=== PATIENT | male | born 1960 | race Caucasian/White ===

== ENCOUNTER 2017-07-08 07:15 | Inpatient (IN) | payer SELFPAY ==
[2017-07-08] MEDS ORDERED: ASPIRIN 81 MG TABLET, CHEWABLE PO ONE (07:57)
[2017-07-08 08:17] LABS: ABSOLUTE BASOPHILS # (AUTO) 0.1 10^3/uL (0.0-0.2); ABSOLUTE EOSINOPHILS # (AUTO) 0.3 10^3/uL (0.0-0.6); ABSOLUTE LYMPHOCYTES (AUTO) 2.1 10^3/uL (0.5-4.7); ABSOLUTE MONOCYTES (AUTO) 0.6 10^3/uL (0.1-1.4); ABSOLUTE NEUT (AUTO) 6.3 10^3/uL (1.7-8.2); BASOPHILS % (AUTO) 1.1 % (0-2); EOSINOPHILS % (AUTO) 2.9 % (0-6); HEMOGLOBIN 16.6 g/dL (13.5-17.0); HGB HCT DIFFERENCE 1.8; LYMPHOCYTES % (AUTO) 22.6 % (13-45); MEAN CORPUSCULAR HEMOGLOBIN 31.9 pg (27.0-33.4); MEAN CORPUSCULAR HGB CONC 34.6 g/dL (32.0-36.0); MEAN CORPUSCULAR VOLUME 92 fl (80-97); MONOCYTES % (AUTO) 6.2 % (3-13); RED CELL DISTRIBUTION WIDTH 13.9 % (11.5-14.0); SEGMENTED NEUTROPHILS % (AUTO) 67.2 % (42-78); WHITE BLOOD COUNT 9.4 10^3/uL (4.0-10.5)
[2017-07-08 08:35] LABS: ANION GAP 11 (5-19)
[2017-07-08 08:47] LABS: CREATINE KINASE MB 4.27 ng/mL (<4.55)
[2017-07-08 08:52] LABS: ALANINE AMINOTRANSFERASE 42 U/L (21-72); ALKALINE PHOSPHATASE 119 U/L (38-126); ASPARTATE AMINO TRANSFERASE 34 U/L (17-59); BILIRUBIN,DIRECT 0.4 mg/dL (0.0-0.4); BILIRUBIN,TOTAL 0.8 mg/dL (0.2-1.3); BLOOD UREA NITROGEN 15 mg/dL (7-20); CALCIUM 9.3 mg/dL (8.4-10.2); CARBON DIOXIDE 25 mmol/L (22-30); CHLORIDE 101 mmol/L (98-107); CREATINE KINASE 319 U/L (55-170); CREATININE RESULT 0.92 mg/dL (0.52-1.25); GLUCOSE 310 mg/dL (75-110); POTASSIUM 4.2 mmol/L (3.6-5.0); SODIUM 137.2 mmol/L (137-145); TOTAL PROTEIN 6.9 g/dL (6.3-8.2)
[2017-07-08 09:07] LABS: TROPONIN I 0.076 ng/mL
[2017-07-08] MEDS ORDERED: IPRATROPIUM/ALBUTEROL 0.5-2.5 MG/3 ML AMPUL NEB ONE (09:27)
--- NOTE | 2017-07-08 09:28 | ER Document Report ---
ED Respiratory Problem - General Information source: Patient TRAVEL OUTSIDE OF THE [place] IN LAST 30 DAYS: No <CLINTON MACHUCA - Last Filed: 07/08/17 13:14> <MARINA LEBRON - Last Filed: 07/08/17 17:10> - General Chief Complaint: Shortness Of Breath Stated Complaint: SHORTNESS OF BREATH Time Seen by Provider: 07/08/17 07:57 Notes: Patient is a 56 year old male who presents to the ED with complaints of intermittent dyspnea and chest pressure. Patient also states he feels like his stomach is bloating adding to the pressure in his chest. He has been having a productive cough with wheezing that he states is worse when he is laying down. He denies a fever. He does not have a hx of asthma. He states he has also had lower extremity edema that is worse than his baseline. (CLINTON MACHUCA) - Related Data Home Medications: Current Home Medications No Home Medications 07/08/17 [History] Past Medical History - General Information source: Patient - Social History Smoking Status: Current Every Day Smoker Frequency of alcohol use: Rare Drug Abuse: None Patient has suicidal ideation: No Patient has homicidal ideation: No - Past Medical History Cardiac Medical History: Reports: Hx Hypertension Endocrine Medical History: Reports: Hx Diabetes Mellitus Type 2 Renal/ Medical History: Denies: Hx Peritoneal Dialysis Surgical Hx: Negative <CLINTON MACHUCA - Last Filed: 07/08/17 13:14> - Social History Family History: Reviewed & Not Pertinent <MARINA LEBRON - Last Filed: 07/08/17 17:10> Review of Systems - Review of Systems Constitutional: No symptoms reported EENT: No symptoms reported Cardiovascular: See HPI, Chest pain - pressure Respiratory: See HPI, Cough, Short of breath, Sputum, Wheezing Gastrointestinal: See HPI, Other - bloating Genitourinary: No symptoms reported Male Genitourinary: No symptoms reported Musculoskeletal: See HPI, Leg swelling Skin: No symptoms reported Hematologic/Lymphatic: No symptoms reported Neurological/Psychological: No symptoms reported <CLINTON MACHUCA - Last Filed: 07/08/17 13:14> Physical Exam - General General appearance: Appears well, Alert In distress: None - HEENT Head: Normocephalic, Atraumatic Eyes: Normal Extraocular movements intact: Yes Pupils: PERRL - Respiratory Respiratory status: Tachypnea Breath sounds: Wheezing - fine expiratory with forced expiration, Other - crackles in bases - Cardiovascular Rhythm: Regular Heart sounds: Normal auscultation Murmur: No - Abdominal Inspection: Normal - Back Back: Normal - Extremities General upper extremity: Normal inspection, Normal ROM General lower extremity: Normal ROM. No: Edema - Neurological Neuro grossly intact: Yes - Psychological Associated symptoms: Normal affect, Normal mood - Skin Skin Temperature: Warm Skin Moisture: Dry Skin Color: Normal <CLINTON MACHUCA - Last Filed: 07/08/17 13:14> - Vital signs Vitals: Temp Pulse Resp BP Pulse Ox 97.7 F 106 H 22 H 134/88 H 95 07/08/17 07:25 07/08/17 07:25 07/08/17 07:25 07/08/17 07:25 07/08/17 07:25 Course - Laboratory Result Diagrams: 07/08/17 08:03 07/08/17 08:03 - Consults Dr. Allen Time consulted: 10:51 <CLINTON MACHUCA - Last Filed: 07/08/17 13:14> - Laboratory Result Diagrams: 07/08/17 08:03 07/08/17 08:03 - Diagnostic Test Radiology reviewed: Image reviewed, Reports reviewed <MARINA LEBRON - Last Filed: 07/08/17 17:10> - Re-evaluation Re-evalutation: 07/08/17 1126 Discussed in person with Dr. Allen in strong recommendation to admit the patient for further evaluation of heart failure. 07/08/17 13:14 Discussed with patient the results of echocardiogram. Further discussed the need for the patient to be admitted for further evaluation for the heart failure. The patient will be given Ativan and a nicotine patch to help relieve his anxiety and need to go smoke and will reassess. (CLINTON MACHUCA) 07/08/17 Patient is a 56-year-old male who comes in complaining of difficulty breathing particularly with exertion and trying to lay flat. Patient symptoms are consistent with congestive heart failure. Patient has crackles at bases, pulmonary congestion on chest x-ray. Patient was seen by Dr. Allen and CTA, as well as stat echocardiogram were obtained. Both are consistent with heart failure and fluid overload. Patient initially was resistant to staying in the hospital but is now agreeable to do that. Patient states that he is feeling very anxious. He will be given some Ativan and also a nicotine patch. Patient does not have any chest pain. Patient has been referred to the hospitalist service for admission. (MARINA LEBRON) - Vital Signs Vital signs: Temp Pulse Resp BP Pulse Ox 98.4 F 106 H 22 H 140/88 H 95 07/08/17 16:55 07/08/17 16:55 07/08/17 16:55 07/08/17 16:55 07/08/17 16:55 - Laboratory Laboratory results interpreted by me: 07/08/17 08:03 Glucose 310 H Creatine Kinase 319 H - Consults Dr. Allen Reason for consultation: 07/08/17 10:51 Discussed patient. He will review patients records and call back. 07/08/17 11:05 He will come see the patient. (CLINTON MACHUCA) Critical Care Note - Critical Care Note Total time excluding time spent on procedures (mins): 45 - Evaluation and management of difficulty breathing, management of fluid overload, diagnosis of new onset heart failure, consultation with specialist, coordination of admission <MARINA LEBRON - Last Filed: 07/08/17 17:10> Discharge <CLINTON MACHUCA - Last Filed: 07/08/17 13:14> - Discharge Admitting Provider: Hospitalist - [facility] Admitted: Telemetry <MARINA LEBRON - Last Filed: 07/08/17 17:10> - Discharge Clinical Impression: New onset of congestive heart failure Condition: Stable Disposition: ADMITTED INPATIENT Scribe Attestation: 07/08/17 17:09 I personally performed the services described in the documentation, reviewed and edited the documentation which was dictated to the scribe in my presence, and it accurately records my words and actions. (MARINA LEBRON) Scribe Documentation - Scribe Written by Scribe:: mariaelena Fernandes, 07/08/2017, 1014 acting as scribe for :: Fannie <CLINTON MACHUCA - Last Filed: 07/08/17 13:14>
--- NOTE | 2017-07-08 10:39 | RADIOLOGY REPORT (SQ) ---
EXAM DESCRIPTION: CHEST PA/LAT COMPLETED DATE/TIME: 07/08/2017 10:21 am REASON FOR STUDY: SOB COMPARISON: None. EXAM PARAMETERS: NUMBER OF VIEWS: two views TECHNIQUE: Digital Frontal and Lateral radiographic views of the chest acquired. RADIATION DOSE: NA LIMITATIONS: none FINDINGS: LUNGS AND PLEURA: Chronic interstitial changes. Pulmonary vascular congestion. Mild pulm onary edema. No localized infiltrate. MEDIASTINUM AND HILAR STRUCTURES: No masses or contour abnormalities. HEART AND VASCULAR STRUCTURES: Heart size is normal. BONES: No acute findings. HARDWARE: None in the chest. OTHER: No other significant finding. IMPRESSION: Chronic lung changes. Pulmonary vascular congestion mild pulmonary edema but normal hea rt size. TECHNICAL DOCUMENTATION: JOB ID: [id number] [employer]- All Rights Reserved
[2017-07-08] MEDS ORDERED: FUROSEMIDE INJ/PF 40 MG/4 ML SDV IV ONE ×2 (10:54→18:00)
--- NOTE | 2017-07-08 12:19 | RADIOLOGY REPORT (SQ) ---
EXAM DESCRIPTION: CTA CHEST COMPLETED DATE/TIME: 07/08/2017 11:52 am REASON FOR STUDY: evaluate for PE COMPARISON: None. TECHNIQUE: CT scan of the chest performed using helical scanning technique with dynamic intravenous contrast injection. Images reviewed with lung, soft tissue and bone windows. Reconstructed coronal and sagittal MPR images reviewed. Additional 3 dimensional post-processing performed to develop Maximal Intensity Projection images (DC P). All images stored on PACS. All CT scanners at this facility use dose modulation, iterative reconstruction, and/or weight based d osing when appropriate to reduce radiation dose to as low as reasonably achievable (ALARA). [facility]: Dose Right [facility]: CareDose [facility]: Dose Right [facility]: Teradose 4D [facility]: [employer] CONTRAST TYPE AND DOSE: contrast/concentration: Isovue 370.00 mg/ml; Total Contrast Delivered: 83.0 ml; Total Saline Delivered: 80.0 ml Contrast bolus optimized for the pulmonary arteries. Not diagnostic for the aorta. RENAL FUNCTION: Creatinine 0.9 BUN 15 RADIATION DOSE: Up-to-date CT equipment and radiation dose reduction techniques were employed. CTDIv ol: 16.5 - 35.1 mGy. DLP: 1346 mGy-cm. . LIMITATIONS: None. FINDINGS: LUNGS AND PLEURA: Moderate right pleural effusion, smaller left pleural effusion. AORTA AND GREAT VESSELS: No aneurysm. Contrast bolus not optimized for the aorta. HEART: No pericardial effusion. Mild coronary atherosclerosis. PULMONARY ARTERIES: No emboli visualized in the main pulmonary arteries or the segmental branches. HILAR AND MEDIASTINAL STRUCTURES: No identified masses or abnormal nodes. HARDWARE: None in the chest. UPPER ABDOMEN: No significant findings. Limited exam. THYROID AND OTHER SOFT TISSUES: No masses. No adenopathy. BONES: No acute or significant finding. 3D MIPS: Confirm above findings. OTHER: No other significant finding. IMPRESSION: 1. There is no evidence of pulmonary emboli. 2. Moderate right pleural effusion, smaller left pleural effusion. COMMENT: Quality ID # [id number]: Final reports with documentation of one or more dose reduction techniques (e.g., Automated exposure control, adjustment of the mA and/or kV according to patient size, use of iterative reconstruction technique) TECHNICAL DOCUMENTATION: JOB ID: [id number] - [employer]- All Rights Reserved
--- NOTE | 2017-07-08 12:33 | PDOC CONSULTATION ---
Consultation Consult Date: 07/08/17 Attending physician:: MARINA LEBRON Consult reason:: Dyspnea, abnormal EKG History of Present Illness Patient complains of: Shortness of breath History of Present Illness: Patient is a 56 year old male who presents to the ED with complaints of intermittent dyspnea and chest pressure. Patient also states he feels like his stomach is bloating adding to the pressure in his chest. He has been having a productive cough with wheezing that he states is worse when he is laying down. He denies a fever. He does not have a hx of asthma. He states he has also had lower extremity edema that is worse than his baseline. Patient describes history of hypertension. He has borderline diabetes. Patient denied any prior history of myocardial infarction, angina or congestive heart failure. Patient works as a flatbed truck driver. Patient denied any prior history of blood clots in the legs are in the lungs. Patient denied any significant radiation to the discomfort. There is no significant associated symptoms except for shortness of breath. There is no associated nausea vomiting or diaphoresis. Symptoms has been going on just a few days with gradual worsening. Patient came to the ER because of worsening dyspnea, leg swelling and marked exercise intolerance. Past Medical History Cardiac Medical History: Reports: Hypertension Endocrine Medical History: Reports: Diabetes Mellitus Type 2 Past Surgical History Past Surgical History: Reports: None Social History Information Source: Patient Smoking Status: Current Every Day Smoker - Advance Directive Resuscitation Status: Full Code Surrogate healthcare decision maker:: Patient's is the surrogate decision-maker Family History Family History: Hypertension Parental Family History Reviewed: Yes Children Family History Reviewed: Yes Sibling(s) Family History Reviewed.: Yes Medication/Allergy Home Medications: Aspirin [Aspirin 81 mg Chewable Tablet] 81 mg PO DAILY tab.chew 07/10/17 Atorvastatin Calcium [Lipitor 40 mg Tablet] 40 mg PO QHS #30 tablet 07/10/17 Clopidogrel Bisulfate [Plavix 75 mg Tablet] 75 mg PO DAILY #30 tablet 07/10/17 Furosemide [Lasix 80 mg Tablet] 80 mg PO DAILY #30 tablet 07/10/17 Lisinopril 2.5 mg PO DAILY #30 tablet 07/10/17 Metformin HCl [Glucophage 500 mg Tablet] 1,000 mg PO BIDACBS #60 tablet Metoprolol Succinate [Toprol Xl 25 mg Tab.sr] 25 mg PO DAILY #30 tab.sr.24h Allergies/Adverse Reactions: No Known Allergies Allergy (Unverified 07/08/17 17:22) Review of Systems Review of Systems: Please see history of present illness and past medical history as wall. Constitutional: No fever or chills reported. Head : No recent chronic headaches, recent head injury. Eyes: No recent eye pain, diplopia, redness, discharge, acute visual changes. Ears: No recent chronic ear pain, acute hearing loss, ear discharge. Oral cavity: No recent ulcerations, bleeding, oral cavity discomfort. Neck: No recent acute neck pain reported. Hematologic: No recent easy bruising or bleeding or hematologic malignancy reported. Lymphatic: No recent lymphatic malignancy, chronic lymphadenopathy reported yet Cardiovascular system review: See history of present illness. Respiratory system review: No recent chronic cough, hemoptysis, blood clots in the lungs reported. Mild Shortness of breath on exertion Gastrointestinal system review: Negative for any recent acute or chronic abdominal pain, hematemesis, melena, recent change in bowel habits. Genitourinary system review: No recent acute or chronic hematuria, flank pain, UTI etc. reported. Patient noted some testicular swelling. Skin system review: Negative for any recent abnormal bruising, no rash, no pruritus reported. Neurologic: No prior history of strokes, mini strokes, seizure disorder. Psychologic: No history of major psychosis or major depression reported. Musculoskeletal: Minor aches and pains reported. No acute joint swelling reported. Endocrine: No recent polyuria, polydipsia, recent heat or cold intolerance. Physical Exam Vital Signs: Temp Pulse Resp BP Pulse Ox 97.7 F 106 H 26 H 134/88 H 95 07/08/17 07:25 07/08/17 07:25 07/08/17 09:02 07/08/17 07:25 07/08/17 07:25 Intake & Output 07/07/17 07/08/17 07/09/17 06:59 06:59 06:59 Weight 120.4 kg Results Laboratory Results: 07/08/17 08:03 07/08/17 08:03 07/08/17 07/08/17 08:03 08:03 WBC 9.4 RBC 5.20 Hgb 16.6 Hct 48.0 MCV 92 MCH 31.9 MCHC 34.6 RDW 13.9 Plt Count 203 Seg Neutrophils % 67.2 Lymphocytes % 22.6 Monocytes % 6.2 Eosinophils % 2.9 Basophils % 1.1 Absolute Neutrophils 6.3 Absolute Lymphocytes 2.1 Absolute Monocytes 0.6 Absolute Eosinophils 0.3 Absolute Basophils 0.1 Sodium 137.2 Potassium 4.2 Chloride 101 Carbon Dioxide 25 Anion Gap 11 BUN 15 Creatinine 0.92 Est GFR ( Amer) > 60 Est GFR (Non-Af Amer) > 60 Glucose 310 H Calcium 9.3 Total Bilirubin 0.8 AST 34 ALT 42 Alkaline Phosphatase 119 Total Protein 6.9 Albumin 4.0 07/08/17 07/08/17 07/08/17 08:03 08:03 08:03 Creatine Kinase 319 H CK-MB (CK-2) 4.27 Troponin I 0.076 NT-Pro-B Natriuret Pep 232 Impressions: Chest X-Ray 07/08/17 07:57 IMPRESSION: Chronic lung changes. Pulmonary vascular congestion mild pulmonary edema but normal heart size. Chest/Abdomen CTA 07/08/17 11:23 IMPRESSION: 1. There is no evidence of pulmonary emboli. 2. Moderate right pleural effusion, smaller left pleural effusion. Assessment & Plan - Diagnosis (1) Dyspnea Qualifiers: Dyspnea type: dyspnea on exertion Qualified Code(s): R06.09 - Other forms of dyspnea Is this a current diagnosis for this admission?: Yes (2) Hypertension Qualifiers: Hypertension type: essential hypertension Qualified Code(s): I10 - Essential (primary) hypertension Is this a current diagnosis for this admission?: Yes (3) Abnormal electrocardiogram Is this a current diagnosis for this admission?: Yes (4) Congestive heart failure Qualifiers: Congestive heart failure type: unspecified congestive heart failure type Congestive heart failure chronicity: acute on chronic Qualified Code(s): I50.9 - Heart failure, unspecified Is this a current diagnosis for this admission?: Yes (5) Coronary artery disease Qualifiers: Coronary Disease-Associated Artery/Lesion type: circle artery Associated angina: angina presence unspecified Is this a current diagnosis for this admission?: Yes (6) Elevated troponin I level Is this a current diagnosis for this admission?: Yes - Notes Notes: Dyspnea: Chest x-ray suggests CHF. Patient has troponin I elevation. Have ordered a stat echocardiogram, results are pending. Agree with IV Lasix. Hypertension: Recommend good control of blood pressure. Blood pressure goal is 135/85 or less. Abnormal electrocardiogram: EKG suggested LVH, cannot rule out anterior myocardial infarction possibly old. Agree with troponin I cycling. Congestive heart failure: This is strongly suspected based on review of chest x- ray, CT scan even though BNP level is WNL. A 2D echo has been ordered. Coronary artery disease: Patient has coronary calcification on CTA therefore has coronary artery disease. Preliminary 2D echo shows depressed LVEF. Have strongly recommended that patient be admitted. However he is wanting to go home. Discussed with ER physician, feel that patient should really be admitted otherwise, patient may need to sign his own discharge. - Time Time Spent: 50 to 70 Minutes - CODE STATUS was discussed, patient remains full code. Surrogate decision-maker unchanged. Multiple medical problems were addressed. More than 50% of the time spent coordinating care, discussing management plans with involved caregivers. Management plans discussed with involved personnels. Medical decision making was of moderate to high complexity , patient's has multiple comorbidities. Medications reviewed and adjusted accordingly: Yes
--- NOTE | 2017-07-08 12:40 | EKG REPORT ---
SEVERITY:- ABNORMAL ECG - SINUS TACHYCARDIA PROBABLE LEFT ATRIAL ABNORMALITY LOW VOLTAGE IN FRONTAL LEADS BORDERLINE T ABNORMALITIES, INFERIOR LEADS : Confirmed by: Wilfredo Parekh MD 08-Jul-2017 12:39:26
--- NOTE | 2017-07-08 13:01 | XCELERA REPORT ---
[address] [address] Transthoracic Echocardiogram Report Name: LORENZA DE ANDA Age: 56 yrs Gender: Male : 1960 Patient Status: Emergency Patient Location: ER Study Date: 07/08/2017 11:40 AM Height: 71 in Weight: 265 lb BSA: 2.4 m2 Procedure: A complete two-dimensional transthoracic echocardiogram was performed (2D, M-mode, spectral and color flow Doppler). The study was technically difficult with many images being suboptimal in quality. Reason For Study: CHF, dyspnea Ordering Physician: MARINA LEBRON Performed By: Aneta Howard Interpretation Summary Left ventricular systolic function is mildly reduced. The Ejection Fraction estimate is 40-45% Doppler measurements suggest pseudonormalized left ventricular relaxation, which is associated with grade II/IV or mild to moderate diastolic dysfunction There is mild concentric left ventricular hypertrophy. The left ventricle is borderline dilated. Not all wall segments were well visualized. Regional wall motion abnormalities cannot be excluded due to limited visualization. There is a mild amount of mitral regurgitation. The inferior vena cava appeared normal and decreased < 50% with respiration (RAP 10-15 mmHg) There is no pericardial effusion. MMode/2D Measurements & Calculations RVDd: 3.5 cm LVIDd: 5.7 cm FS: 19.3 % Ao root diam: 2.6 cm IVSd: 1.1 cm LVIDs: 4.6 cm EDV(Teich): 157.2 ml LVPWd: 1.1 cm ESV(Teich): 95.5 ml Ao root area: 5.5 cm2 EF(Teich): 39.2 % LA dimension: 4.2 cm Doppler Measurements & Calculations MV E max sabrina: MV P1/2t max sabrina: Ao V2 max: LV V1 max P.4 cm/sec 120.9 cm/sec 135.7 cm/sec 2.2 mmHg MV A max sabrina: MV P1/2t: 31.8 msec Ao max PG: LV V1 max: 57.8 cm/sec 7.4 mmHg 73.5 cm/sec MV E/A: 2.1 MVA(P1/2t): 6.9 cm2 MV dec slope: 1112 cm/sec2 PA V2 max: 94.3 cm/sec PA max P.6 mmHg Left Ventricle The left ventricle is borderline dilated. There is mild concentric left ventricular hypertrophy. Left ventricular systolic function is mildly reduced. The Ejection Fraction estimate is 40-45%. Doppler measurements suggest pseudonormalized left ventricular relaxation, which is associated with grade II/IV or mild to moderate diastolic dysfunction. Not all wall segments were well visualized. Regional wall motion abnormalities cannot be excluded due to limited visualization. Right Ventricle The right ventricle is grossly normal size. The right ventricular systolic function is normal. Atria Borderline right atrial enlargement. The left atrium is mildly dilated. Interarterial septum not well visualized and not well dopplered. Cannot comment on ASD/PFO presence. Mitral Valve The mitral valve leaflets are sclerotic, but show no functional abnormalities. There is no mitral valve stenosis. There is a mild amount of mitral regurgitation. Aortic Valve The aortic valve is grossly normal. There is no aortic valve stenosis. No aortic regurgitation is present. Tricuspid Valve The tricuspid valve is not well visualized, but is grossly normal. There is no tricuspid stenosis. There is a trace or physiologic amount of tricuspid regurgitation. Tricuspid regurgitation jet envelope not well defined to measure RV systolic pressure accurately. Pulmonic Valve The pulmonic valve is not well visualized. Great Vessels The aortic root is not well visualized but is probably normal size. The inferior vena cava appeared normal and decreased < 50% with respiration (RAP 10-15 mmHg). Effusions There is no pericardial effusion. : MARINA LEBRON > Pernell Allen
[2017-07-08] MEDS ORDERED: NICOTINE 21 MG/24 HR PATCH.TD24 TD ONE (13:18)
[2017-07-08] MEDS ORDERED: LORAZEPAM INJ 2 MG/1 ML VIAL IV ONE (13:18)
[2017-07-08] MEDS ORDERED: ALBUTEROL SULFATE 0.083% NEB 2.5 MG/3 ML AMPUL NEB PRN (15:44)
[2017-07-08] MEDS ORDERED: ONDANSETRON HCL INJ/PF 4 MG/2 ML SDV IV PRN (15:50)
[2017-07-08] MEDS ORDERED: DEXTROSE 40% GEL 15 GM TUBE PO PRN ×2 (15:55)
[2017-07-08] MEDS ORDERED: GLUCAGON,HUMAN RECOMB 1 MG INJ IM PRN (15:55)
[2017-07-08] MEDS ORDERED: DEXTROSE 50%-WATER 25 GM/50 ML DISP.SYRIN IV PRN ×2 (15:55)
--- NOTE | 2017-07-08 16:28 | PDOC H&P ---
History of Present Illness Admission Date/PCP: 07/08/17 14:15 Patient complains of: Shortness of breath History of Present Illness: Patient is a 56 year old male who presents to the ED with complaints of intermittent dyspnea and chest pressure. Patient also states he feels like his stomach is bloating adding to the pressure in his chest. He has been having a productive cough with wheezing that he states is worse when he is laying down. He denies a fever. He does not have a hx of asthma. He states he has also had lower extremity edema that is worse than his baseline. Patient describes history of hypertension. He has borderline diabetes. He however has malaise for several weeks. He had paroxysmal nocturnal dyspnea that started last week. He developed worsening symptoms for the past 2 days. No purulent expectoration however was reported. Patient went to the emergency room, CT scan of the chest showed no pulmonary embolism however there is moderate pleural effusion on the right. Noted small effusion on the left as well. No definite infiltrate nor consolidation otherwise were noted. Patient was evaluated by cardiology and an impression of heart failure was made. Patient was then referred to the hospitalist for admission. In the emergency room he was given Ativan and currently the patient was sedated. Information obtained from the family was at bedside and from urgency room records. Past Medical History Cardiac Medical History: Reports: Hypertension Endocrine Medical History: Reports: Diabetes Mellitus Type 2 Renal/ Medical History: Reports: Other - Cystocele Past Surgical History Past Surgical History: Reports: None Social History Information Source: Relative Smoking Status: Current Every Day Smoker Frequency of Alcohol Use: None Hx Recreational Drug Use: Yes Drugs: Cocaine - Advance Directive Resuscitation Status: Full Code Family History Family History: CAD, DM, Hypertension Parental Family History Reviewed: Yes Children Family History Reviewed: Yes Sibling(s) Family History Reviewed.: Yes Medication/Allergy Home Medications: No Home Medications 07/08/17 Review of Systems ROS unobtainable: Due to mental status Physical Exam Vital Signs: Temp Pulse Resp BP Pulse Ox 97.9 F 99 24 H 139/92 H 96 07/08/17 15:17 07/08/17 15:17 07/08/17 15:17 07/08/17 15:17 07/08/17 15:17 General appearance: PRESENT: no acute distress, obese Head exam: PRESENT: atraumatic, normocephalic Eye exam: PRESENT: conjunctiva pink, EOMI, PERRLA. ABSENT: scleral icterus Ear exam: PRESENT: normal external ear exam. ABSENT: drainage Mouth exam: PRESENT: moist, neck supple Neck exam: ABSENT: carotid bruit, JVD, lymphadenopathy, thyromegaly Respiratory exam: PRESENT: clear to auscultation sabine - Anteriorly, decreased breath sounds - Posteriorly on the lower lung field. ABSENT: rales, rhonchi, wheezes Cardiovascular exam: PRESENT: RRR, +S1, +S2. ABSENT: diastolic murmur, gallop, rubs, systolic murmur Pulses: PRESENT: normal dorsalis pedis pul Vascular exam: PRESENT: normal capillary refill GI/Abdominal exam: PRESENT: normal bowel sounds, soft. ABSENT: distended - Obese, guarding, mass - Exam is limited due to increased abdominal girth, organolmegaly - Exam is limited due to increased abdominal girth, rebound, tenderness Rectal exam: PRESENT: deferred Extremities exam: PRESENT: full ROM, other - Trace to +1 lower extremity edema. ABSENT: calf tenderness, clubbing Neurological exam: PRESENT: altered - Patient is sedated Skin exam: PRESENT: dry, intact, warm. ABSENT: cyanosis Results Laboratory Results: 07/08/17 14:18 Troponin I 0.104 Impressions: Chest X-Ray 07/08/17 07:57 IMPRESSION: Chronic lung changes. Pulmonary vascular congestion mild pulmonary edema but normal heart size. Chest/Abdomen CTA 07/08/17 11:23 IMPRESSION: 1. There is no evidence of pulmonary emboli. 2. Moderate right pleural effusion, smaller left pleural effusion. Assessment & Plan - Diagnosis (1) Congestive heart failure Qualifiers: Congestive heart failure type: unspecified congestive heart failure type Congestive heart failure chronicity: acute on chronic Qualified Code(s): I50.9 - Heart failure, unspecified Is this a current diagnosis for this admission?: Yes (2) Pleural effusion Is this a current diagnosis for this admission?: Yes (3) Diabetes mellitus type 2 in obese Is this a current diagnosis for this admission?: Yes (4) Cystocele Is this a current diagnosis for this admission?: Yes (5) Hypertension Qualifiers: Hypertension type: essential hypertension Qualified Code(s): I10 - Essential (primary) hypertension Is this a current diagnosis for this admission?: Yes - Time Time Spent: 50 to 70 Minutes - Inpatient Certification Based on my medical assessment, after consideration of the patient's comorbidities, presenting symptoms, or acuity I expect that the services needed warrant INPATIENT care.: Yes I certify that my determination is in accordance with my understanding of Medicare's requirements for reasonable and necessary INPATIENT services [42 CFR 412.3e].: Yes Medical Necessity: Need Close Monitoring Due to Risk of Patient Decompensation, Need For Continuous Telemetry Monitoring, Risk of Complication if Not Cared For in Hospital, Risk of Diagnosis Which Will Require Inpatient Eval/Care/Monitoring Post Hospital Care: D/C Community Organizer Documentation - Plan Summary Plan Summary: The patient will be admitted to [facility]. We will begin diuretics intravenously with furosemide. We will obtain serial cardiac enzymes 3. Begin aspirin and Plavix. Supplemental oxygen will be given. DVT prophylaxis with Lovenox will be placed. I will also put the patient on nitroglycerin. An echocardiogram was obtained showing an ejection fraction of 40-45%. Cardiology evaluation appreciated. We will likewise give bronchodilators as needed for spasms. Further testing depends on the initial evaluation as outlined above.
[2017-07-08] MEDS ORDERED: CLOPIDOGREL BISULFATE 75 MG TABLET PO ONE (18:00)
[2017-07-08 18:05] LABS: CREATINE KINASE MB 3.43 ng/mL (<4.55); TROPONIN I 0.104 ng/mL
[2017-07-08] MEDS: ACETAMINOPHEN 325 MG TABLET PO PRN ×2 (18:26→23:26)
[2017-07-08] MEDS: DOCUSATE SODIUM 100 MG CAPSULE PO SCH (18:27)
[2017-07-08] MEDS ORDERED: ENOXAPARIN SODIUM INJ 40 MG/0.4 ML DISP.SYRIN SUBCUT ONE (18:30)
[2017-07-08] MEDS: NITROGLYCERIN 2% OINTMENT 1 GM PACKET TP SCH ×2 (18:32→23:25)
[2017-07-08 19:55] LABS: CHOLESTEROL 181.19 mg/dL (0-200); Direct HDL 17 mg/dL (>40)
[2017-07-08 20:05] LABS: DIRECT LDL 48 mg/dL (<100)
[2017-07-08 20:06] LABS: TRIGLYCERIDES 969 mg/dL (<150)
[2017-07-08] MEDS: ATORVASTATIN CALCIUM 40 MG TABLET PO SCH (22:46)
[2017-07-08] MEDS: INSULIN REG, HUMAN 100 UNIT/ML 3 ML VIAL (PYX) SUBCUT PRN (23:26)
[2017-07-09 00:02] LABS: CREATINE KINASE MB 3.44 ng/mL (<4.55); TROPONIN I 0.11 ng/mL
[2017-07-09] MEDS: ACETAMINOPHEN 325 MG TABLET PO PRN (04:52)
[2017-07-09 05:31] LABS: ABSOLUTE BASOPHILS # (AUTO) 0.1 10^3/uL (0.0-0.2); ABSOLUTE EOSINOPHILS # (AUTO) 0.3 10^3/uL (0.0-0.6); ABSOLUTE LYMPHOCYTES (AUTO) 1.9 10^3/uL (0.5-4.7); ABSOLUTE MONOCYTES (AUTO) 0.5 10^3/uL (0.1-1.4); ABSOLUTE NEUT (AUTO) 5.9 10^3/uL (1.7-8.2); BASOPHILS % (AUTO) 1.3 % (0-2); EOSINOPHILS % (AUTO) 3.5 % (0-6); HEMATOCRIT 47.2 % (37.9-51.0); HEMOGLOBIN 16.7 g/dL (13.5-17.0); HGB HCT DIFFERENCE 2.9; LYMPHOCYTES % (AUTO) 21.6 % (13-45); MEAN CORPUSCULAR HEMOGLOBIN 32.6 pg (27.0-33.4); MEAN CORPUSCULAR HGB CONC 35.5 g/dL (32.0-36.0); MEAN CORPUSCULAR VOLUME 92 fl (80-97); RED BLOOD COUNT 5.13 10^6/uL (4.35-5.55); RED CELL DISTRIBUTION WIDTH 13.6 % (11.5-14.0); SEGMENTED NEUTROPHILS % (AUTO) 67.6 % (42-78); WHITE BLOOD COUNT 8.7 10^3/uL (4.0-10.5)
[2017-07-09 05:47] LABS: ANION GAP 10 (5-19); BLOOD UREA NITROGEN 14 mg/dL (7-20); CALCIUM 9.6 mg/dL (8.4-10.2); CARBON DIOXIDE 26 mmol/L (22-30); CHLORIDE 99 mmol/L (98-107); CREATINE KINASE 263 U/L (55-170); CREATININE RESULT 0.86 mg/dL (0.52-1.25); GLUCOSE 309 mg/dL (75-110); POTASSIUM 4.1 mmol/L (3.6-5.0); SODIUM 135.4 mmol/L (137-145)
[2017-07-09 05:59] LABS: CREATINE KINASE MB 3.25 ng/mL (<4.55); TROPONIN I 0.091 ng/mL
[2017-07-09] MEDS: FUROSEMIDE INJ/PF 40 MG/4 ML SDV IV SCH ×3 (06:21→22:09)
[2017-07-09] MEDS: LANSOPRAZOLE 30 MG TAB.RAP.DR PO SCH (06:22)
[2017-07-09] MEDS: NITROGLYCERIN 2% OINTMENT 1 GM PACKET TP SCH ×3 (06:22→22:07)
--- NOTE | 2017-07-09 07:16 | EKG REPORT ---
SEVERITY:- ABNORMAL ECG - SINUS RHYTHM LEFT ATRIAL ABNORMALITY LOW VOLTAGE IN FRONTAL LEADS BORDERLINE T ABNORMALITIES, INFERIOR LEADS BORDERLINE PROLONGED QT INTERVAL : Confirmed by: Wilfredo Parekh MD 09-Jul-2017 07:15:30
[2017-07-09] MEDS: INSULIN REG, HUMAN 100 UNIT/ML 3 ML VIAL (PYX) SUBCUT PRN ×3 (08:25→17:16)
[2017-07-09] MEDS: ASPIRIN 81 MG TABLET, CHEWABLE PO SCH (09:52)
[2017-07-09] MEDS: CLOPIDOGREL BISULFATE 75 MG TABLET PO SCH (09:52)
[2017-07-09] MEDS: DOCUSATE SODIUM 100 MG CAPSULE PO SCH ×2 (09:53→17:15)
[2017-07-09] MEDS: NICOTINE 21 MG/24 HR PATCH.TD24 TD SCH (09:53)
[2017-07-09] MEDS: ENOXAPARIN SODIUM INJ 40 MG/0.4 ML DISP.SYRIN SUBCUT SCH (09:53)
--- NOTE | 2017-07-09 14:33 | PDOC PROGRESS REPORT ---
Subjective Progress Note for:: 07/09/17 Subjective:: Patient feels a lot better. Denies any chest pain. He reports having a lot of heartburn for the past several weeks. No nausea or vomiting. No diarrhea. No PND orthopnea at this time. Shortness of breath is much better. Physical Exam Vital Signs: Temp Pulse Resp BP Pulse Ox 98.3 F 103 H 18 123/75 95 07/09/17 11:22 07/09/17 11:22 07/09/17 11:22 07/09/17 11:22 07/09/17 11:22 Intake & Output 07/08/17 07/09/17 07/10/17 06:59 06:59 06:59 Intake Total 1325 711 Balance 1325 711 Weight 114.7 kg General appearance: PRESENT: no acute distress, cooperative, obese Head exam: PRESENT: normocephalic Eye exam: PRESENT: EOMI Mouth exam: PRESENT: moist, neck supple Neck exam: ABSENT: JVD Respiratory exam: PRESENT: decreased breath sounds - Lower lung mane. ABSENT : rhonchi, wheezes Cardiovascular exam: PRESENT: RRR. ABSENT: gallop GI/Abdominal exam: PRESENT: soft. ABSENT: distended - Obese, tenderness Extremities exam: PRESENT: other - Trace lower extremity edema Neurological exam: PRESENT: alert, awake, oriented to situation Skin exam: PRESENT: dry, warm. ABSENT: cyanosis Results Laboratory Results: 07/09/17 05:18 07/09/17 05:18 07/08/17 07/08/17 07/09/17 17:29 17:29 05:18 WBC RBC Hgb Hct MCV MCH MCHC RDW Plt Count Seg Neutrophils % Lymphocytes % Monocytes % Eosinophils % Basophils % Absolute Neutrophils Absolute Lymphocytes Absolute Monocytes Absolute Eosinophils Absolute Basophils Sodium 135.4 L Potassium 4.1 Chloride 99 Carbon Dioxide 26 Anion Gap 10 BUN 14 Creatinine 0.86 Est GFR ( Amer) > 60 Est GFR (Non-Af Amer) > 60 Glucose 309 H Calcium 9.6 Triglycerides 969 H Cholesterol 181.19 LDL Cholesterol Direct 48 VLDL Cholesterol UNABLE TO CALCULATE HDL Cholesterol 17 L TSH 4.25 07/09/17 05:18 WBC 8.7 RBC 5.13 Hgb 16.7 Hct 47.2 MCV 92 MCH 32.6 MCHC 35.5 RDW 13.6 Plt Count 192 Seg Neutrophils % 67.6 Lymphocytes % 21.6 Monocytes % 6.0 Eosinophils % 3.5 Basophils % 1.3 Absolute Neutrophils 5.9 Absolute Lymphocytes 1.9 Absolute Monocytes 0.5 Absolute Eosinophils 0.3 Absolute Basophils 0.1 Sodium Potassium Chloride Carbon Dioxide Anion Gap BUN Creatinine Est GFR ( Amer) Est GFR (Non-Af Amer) Glucose Calcium Triglycerides Cholesterol LDL Cholesterol Direct VLDL Cholesterol HDL Cholesterol TSH 07/08/17 07/08/17 07/08/17 17:29 17:29 23:24 Creatine Kinase 265 H 273 H CK-MB (CK-2) 3.43 Troponin I 0.104 07/08/17 07/09/17 07/09/17 23:24 05:18 05:18 Creatine Kinase 263 H CK-MB (CK-2) 3.44 3.25 Troponin I 0.110 0.091 Impressions: Chest X-Ray 07/08/17 07:57 IMPRESSION: Chronic lung changes. Pulmonary vascular congestion mild pulmonary edema but normal heart size. Chest/Abdomen CTA 07/08/17 11:23 IMPRESSION: 1. There is no evidence of pulmonary emboli. 2. Moderate right pleural effusion, smaller left pleural effusion. Assessment & Plan - Diagnosis (1) Congestive heart failure Qualifiers: Congestive heart failure type: unspecified congestive heart failure type Congestive heart failure chronicity: acute on chronic Qualified Code(s): I50.9 - Heart failure, unspecified Is this a current diagnosis for this admission?: Yes (2) Pleural effusion Is this a current diagnosis for this admission?: Yes (3) Diabetes mellitus type 2 in obese Is this a current diagnosis for this admission?: Yes (4) Cystocele Is this a current diagnosis for this admission?: Yes (5) Hypertension Qualifiers: Hypertension type: essential hypertension Qualified Code(s): I10 - Essential (primary) hypertension Is this a current diagnosis for this admission?: Yes - Time Time Spent with patient: 15-24 minutes - Plan Summary Plan Summary: Continue diuretics and antiplatelet therapy. Appreciate cardiology input. Awaiting stress test. We will begin beta-patty once stress test is completed. Ejection fraction is mildly reduced but greater than 40.
--- NOTE | 2017-07-09 19:12 | PDOC PROGRESS REPORT ---
Subjective Progress Note for:: 07/09/17 Subjective:: Patient seems to be doing better with gradual improvement. Pt is denying any chest arm or neck discomfort. Patient denying any PND, orthopnea. Patient denied any sustained palpitations, dizziness, syncope, near syncope. Patient denying any fever chills. Patient denying any other significant discomfort. Patient is maintaining sinus rhythm. Nuclear stress test so scheduled for tomorrow. Risks benefits and site effects were discussed. Patient wishes to pursue the stress test. Review of systems: Rest review of systems negative. Medications: Medications have been reviewed. Physical Exam Vital Signs: Temp Pulse Resp BP Pulse Ox 97.8 F 87 18 112/58 L 96 07/09/17 15:35 07/09/17 15:35 07/09/17 15:35 07/09/17 15:35 07/09/17 15:35 Intake & Output 07/08/17 07/09/17 07/10/17 06:59 06:59 06:59 Intake Total 1325 1151 Balance 1325 1151 Weight 114.7 kg Exam: GENERAL: well-nourished and in no acute distress. Alert and oriented x3 HEAD: Atraumatic, normocephalic. EYES: Pupils equal round and reactive to light, extraocular movements intact, sclera anicteric, conjunctiva are normal. ENT: TMs normal, nares patent, oropharynx clear without exudates. Moist mucous membranes. No oral ulcerations or bleeding gums noted NECK: supple without lymphadenopathy. Trachea is central. No cervical or axillary lymphadenopathy noted. Carotids are 2+, JVD WNL LUNGS: Respiration seems nonlabored, no significant accessory muscle action noted. Bibasilar fine crackles and mild bilateral dullness noted. No wheezing noted CHEST: Palpation of the chest wall shows no significant chest wall tenderness. No other significant abnormalities noted. 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 ABDOMEN: Soft, no significant tenderness appreciated, normoactive bowel sounds. No guarding, no rebound. No rigidity noted . No masses appreciated. EXTREMITIES: Pedal pulses are 1-2+, no calf tenderness noted. No clubbing or cyanosis.trace to 1+ pedal edema noted. Testicular swelling noted. NEUROLOGICAL: Focused neurological exam showed no significant neurologic deficit. Normal speech, no focal weakness appreciated. PSYCH: Normal mood, normal affect. Judgment and insight within normal limits. SKIN: No significant ecchymosis, rash, ulcerations or signs of pruritus noted. MUSCULOSKELETAL EXAM: No significant joint swelling noted. Results Laboratory Results: 07/09/17 05:18 07/09/17 05:18 07/08/17 07/09/17 07/09/17 17:29 05:18 05:18 WBC 8.7 RBC 5.13 Hgb 16.7 Hct 47.2 MCV 92 MCH 32.6 MCHC 35.5 RDW 13.6 Plt Count 192 Seg Neutrophils % 67.6 Lymphocytes % 21.6 Monocytes % 6.0 Eosinophils % 3.5 Basophils % 1.3 Absolute Neutrophils 5.9 Absolute Lymphocytes 1.9 Absolute Monocytes 0.5 Absolute Eosinophils 0.3 Absolute Basophils 0.1 Sodium 135.4 L Potassium 4.1 Chloride 99 Carbon Dioxide 26 Anion Gap 10 BUN 14 Creatinine 0.86 Est GFR ( Amer) > 60 Est GFR (Non-Af Amer) > 60 Glucose 309 H Calcium 9.6 Triglycerides 969 H Cholesterol 181.19 LDL Cholesterol Direct 48 VLDL Cholesterol UNABLE TO CALCULATE HDL Cholesterol 17 L 07/08/17 07/08/17 07/08/17 17:29 17:29 23:24 Creatine Kinase 265 H 273 H CK-MB (CK-2) 3.43 Troponin I 0.104 07/08/17 07/09/17 07/09/17 23:24 05:18 05:18 Creatine Kinase 263 H CK-MB (CK-2) 3.44 3.25 Troponin I 0.110 0.091 EKG Comments: Telemetry strips shows sinus rhythm with mild intermittent sinus tachycardia. Impressions: Chest X-Ray 07/08/17 07:57 IMPRESSION: Chronic lung changes. Pulmonary vascular congestion mild pulmonary edema but normal heart size. Chest/Abdomen CTA 07/08/17 11:23 IMPRESSION: 1. There is no evidence of pulmonary emboli. 2. Moderate right pleural effusion, smaller left pleural effusion. Assessment & Plan - Diagnosis (1) Dyspnea Qualifiers: Dyspnea type: dyspnea on exertion Qualified Code(s): R06.09 - Other forms of dyspnea Is this a current diagnosis for this admission?: Yes (2) Hypertension Qualifiers: Hypertension type: essential hypertension Qualified Code(s): I10 - Essential (primary) hypertension Is this a current diagnosis for this admission?: Yes (3) Abnormal electrocardiogram Is this a current diagnosis for this admission?: Yes (4) Congestive heart failure Qualifiers: Congestive heart failure type: unspecified congestive heart failure type Congestive heart failure chronicity: acute on chronic Qualified Code(s): I50.9 - Heart failure, unspecified Is this a current diagnosis for this admission?: Yes (5) Coronary artery disease Qualifiers: Coronary Disease-Associated Artery/Lesion type: [place] artery Associated angina: angina presence unspecified Is this a current diagnosis for this admission?: Yes (6) Elevated troponin I level Is this a current diagnosis for this admission?: Yes (7) Sleep disorder breathing Is this a current diagnosis for this admission?: Yes (8) Diabetes mellitus type 2 in obese Is this a current diagnosis for this admission?: Yes (9) Chest pain Qualifiers: Chest pain type: unspecified Qualified Code(s): R07.9 - Chest pain, unspecified Is this a current diagnosis for this admission?: Yes - Notes Notes: 2D echo results discussed. Patient scheduled for a stress test tomorrow. Chest pain: Patient does actually have some intermittent lower chest and epigastric discomfort on presentation. He denied any recurrence of chest pain. Patient claims his symptoms have significantly improved overall. Dyspnea: Chest x-ray suggests CHF. Patient has troponin I elevation. 2D echocardiogram discussed. Patient still volume overloaded therefore treat with IV Lasix. Hypertension: Recommend good control of blood pressure. Blood pressure goal is 135/85 or less. Abnormal electrocardiogram: EKG suggested LVH, cannot rule out anterior myocardial infarction possibly old. Nuclear stress test will be helpful in identifying this. Congestive heart failure: This is strongly suspected based on review of chest x- ray, CT scan even though BNP level is WNL. Clinically and quick response to IV Lasix suggest that patient has CHF. Coronary artery disease: Patient has coronary calcification on CTA therefore has coronary artery disease. Patient was placed on statin therapy. Patient will benefit from aspirin, beta-patty and VALERIE inhibitor therapy along with aggressive risk factor modification and medical management. - Time Time with patient: Greater than 35 minutes - CODE STATUS was discussed, patient remains full code. Surrogate decision-maker unchanged. Multiple medical problems were addressed. More than 50% of the time spent coordinating care, discussing management plans with involved caregivers. Management plans discussed with involved personnels. Medical decision making was of moderate to high complexity, patient's has multiple comorbidities. Medications reviewed and adjusted accordingly: Yes
[2017-07-09] MEDS: ATORVASTATIN CALCIUM 40 MG TABLET PO SCH (22:08)
[2017-07-10] MEDS: INSULIN REG, HUMAN 100 UNIT/ML 3 ML VIAL (PYX) SUBCUT PRN ×3 (00:12→12:48)
[2017-07-10] MEDS: NITROGLYCERIN 2% OINTMENT 1 GM PACKET TP SCH ×2 (03:30→11:18)
[2017-07-10] MEDS: LANSOPRAZOLE 30 MG TAB.RAP.DR PO SCH (05:33)
[2017-07-10] MEDS: FUROSEMIDE INJ/PF 40 MG/4 ML SDV IV SCH (05:33)
[2017-07-10 06:56] LABS: ANION GAP 15 (5-19); BLOOD UREA NITROGEN 17 mg/dL (7-20); CALCIUM 9.8 mg/dL (8.4-10.2); CARBON DIOXIDE 23 mmol/L (22-30); CHLORIDE 97 mmol/L (98-107); CREATININE RESULT 0.88 mg/dL (0.52-1.25); GLUCOSE 274 mg/dL (75-110); POTASSIUM 4.4 mmol/L (3.6-5.0); SODIUM 135.4 mmol/L (137-145)
[2017-07-10] MEDS ORDERED: FUROSEMIDE 80 MG TABLET PO ONE (11:00)
[2017-07-10] MEDS ORDERED: LISINOPRIL 10 MG TABLET PO ONE (11:00)
[2017-07-10] MEDS ORDERED: METOPROLOL SUCCINATE 25 MG TAB.SR.24H PO ONE (11:00)
[2017-07-10] MEDS: DOCUSATE SODIUM 100 MG CAPSULE PO SCH (11:08)
[2017-07-10] MEDS: NICOTINE 21 MG/24 HR PATCH.TD24 TD SCH (11:08)
[2017-07-10] MEDS: ASPIRIN 81 MG TABLET, CHEWABLE PO SCH (11:08)
[2017-07-10] MEDS: CLOPIDOGREL BISULFATE 75 MG TABLET PO SCH (11:09)
[2017-07-10] MEDS: ENOXAPARIN SODIUM INJ 40 MG/0.4 ML DISP.SYRIN SUBCUT SCH (11:10)
--- NOTE | 2017-07-10 11:50 | DRAGON STRESS TEST REPORT ---
INTRAVENOUS LEXISCAN CARDIOLITE STRESS TEST USING SINGLE PHOTON EMMISION COMPUTERIZED TOMOGRAPHIC. DATE OF PROCEDURE: July 10, 2017 INDICATION : Chest pain and CHF CARDIAC RISK FACTORS: Diabetes, hypertension, dyslipidemia, tobacco abuse RESTING EKG: Sinus rhythm, nonprogression of R-wave V1 to V3, possible LVH with some minor secondary ST-T wave changes STRESS EKG: No significant changes noted with LexiScan bolus REASON FOR TERMINATION: Protocol. PROCEDURE REPORT: Baseline heart rate 103 beats per minute with blood pressure of 110/88. Patient had no significant complaints. Heart rate at 2 minutes post bolus 109 with a blood pressure of 114/72. 3 minutes post bolus heart rate 105 with blood pressure of 107/67. No significant EKG changes were noted. Patient had no significant complaints during the procedure or postprocedure. Patient injected with Aminophyllin 75 mg at 3 minutes or later after Lexiscan bolus. CONCLUSIONS: Normal EKG and hemodynamic response to IV LexiScan. NUCLEAR DATA: At rest the patient was given 15.26 millicuries of technetium 99 sestamibi injected intravenously. As per protocol rest gated SPECT images were obtained. Subsequently the patient was given intravenous LexiScan at a dose of 0.4 mg in 5 mL intravenously, followed by flush with normal saline. Subsequently the stress dose of 46.2 millicuries of technetium 99 sestamibi was injected intravenously. As per protocol stress gated images were obtained. NUCLEAR INTERPRETATION: Both raw and processed data were used for interpretation. Visual, qualitative, computer-generated quantitative data was used. There was good myocardial uptake of technetium compound. Motion artifact and soft tissue attenuations were noted. Increased visceral uptake was noted. No definitive areas of transient perfusion defect noted. Predominantly fixed defect noted in the inferior wall consistent with prior myocardial infarction. EKG gated imaging showed LV EF at 28 %, rest and stress gated EF similar visually, diffuse hypokinesia noted. T. I D. ratio was 1.20. Lung heart ratio noted to be within normal limits 0.54. No significant extracardiac and abnormal radiotracer activities were noted. RV free wall uptake was noted to be borderline increased. IMPRESSION: Also refer to comments under nuclear interpretation. Also test results needs to be interpreted in the context of pretest probability. 1. There is no definitive scintigraphic evidence of LexiScan induced myocardial ischemia. 2. Inferior wall fixed defect noted consistent with prior inferior myocardial infarction. 3. EKG gated imaging shows left ventricular ejection fraction of approximately 28 % with diffuse hypokinesia. 4. Recommend clinical correlation with echocardiogram derived LVEF. 5. Patient noted to have increased lung uptake which could be related to CHF which patient was admitted with. However sometimes could indicate balanced ischemia. But doubt this since LVEF both rest and stress are similar. Clinical correlation requested. In approximately 10% of the cases Lexiscan may not cause adequate vasodilatory stress. RECOMMENDATIONS: Aggressive risk factor modification, medical therapy. Low threshold for pursuing heart catheterization. Optimize medical management and risk factor modification. Clinical correlation with echocardiogram derived ejection fraction. Inability to exercise by itself can lead to increased cardiovascular event risks. Consider cardiology consultation and or follow-up if clinically indicated. I AM AVAILABLE FOR CARDIOLOGY CONSULTATION AND FOLLOWUP IF REQUESTED BY PMJillian Allen M.D., [employer] Teacher network coordinator, Board certified in cardiovascular diseases, Nuclear cardiology, Echocardiography Cardiac CT and cardiac MRI Ph. [phone] JOSE
[2017-07-10] MEDS ORDERED: REGADENOSON INJ 0.4 MG/5 ML DISP.SYRIN IV ONE (14:05)
[2017-07-10] MEDS ORDERED: AMINOPHYLLINE INJ/PF 250 MG/10 ML SDV IV ONE (14:05)
--- NOTE | 2017-07-10 14:06 | PDOC DISCHARGE SUMMARY ---
General - Admit/Disc Date/PCP Admission Date/Primary Care Provider: 07/08/17 15:44 Discharge Date: 07/10/17 - Discharge Diagnosis (1) Congestive heart failure Is this a current diagnosis for this admission?: Yes (2) Pleural effusion Is this a current diagnosis for this admission?: Yes (3) Diabetes mellitus type 2 in obese Is this a current diagnosis for this admission?: Yes (4) Cystocele Is this a current diagnosis for this admission?: Yes (5) Hypertension Is this a current diagnosis for this admission?: Yes - Additional Information Resuscitation Status: Full Code Discharge Diet: Cardiac, Diabetic Discharge Activity: Activity As Tolerated, Balance Activity w/Rest, Slowly Increase Activity, Weigh Daily Home Medications: Aspirin [Aspirin 81 mg Chewable Tablet] 81 mg PO DAILY tab.chew 07/10/17 Atorvastatin Calcium [Lipitor 40 mg Tablet] 40 mg PO QHS #30 tablet 07/10/17 Clopidogrel Bisulfate [Plavix 75 mg Tablet] 75 mg PO DAILY #30 tablet 07/10/17 Furosemide [Lasix 80 mg Tablet] 80 mg PO DAILY #30 tablet 07/10/17 Lisinopril 2.5 mg PO DAILY #30 tablet 07/10/17 Metformin HCl [Glucophage 500 mg Tablet] 1,000 mg PO BIDACBS #60 tablet Metoprolol Succinate [Toprol Xl 25 mg Tab.sr] 25 mg PO DAILY #30 tab.sr.24h History of Present Illness Patient complains of: Shortness of breath History of Present Illness: Patient is a 56 year old male who presents to the ED with complaints of intermittent dyspnea and chest pressure. Patient also states he feels like his stomach is bloating adding to the pressure in his chest. He has been having a productive cough with wheezing that he states is worse when he is laying down. He denies a fever. He does not have a hx of asthma. He states he has also had lower extremity edema that is worse than his baseline. Patient describes history of hypertension. He has borderline diabetes. He however has malaise for several weeks. He had paroxysmal nocturnal dyspnea that started last week. He developed worsening symptoms for the past 2 days. No purulent expectoration however was reported. Patient went to the emergency room, CT scan of the chest showed no pulmonary embolism however there is moderate pleural effusion on the right. Noted small effusion on the left as well. No definite infiltrate nor consolidation otherwise were noted. Patient was evaluated by cardiology and an impression of heart failure was made. Patient was then referred to the hospitalist for admission. In the emergency room he was given Ativan and currently the patient was sedated. Information obtained from the family was at bedside and from urgency room records. Hospital Course Hospital Course: The patient was admitted to [facility]. Antiplatelet therapy with Plavix and aspirin was started. Supplemental oxygen was given as well as DVT prophylaxis with Lovenox. Intravenous diuretic was begun. Cardiology was consulted. Patient was started on beta-maría as well. Nitrates was also given. Serial enzymes were negative for myocardial infarction. 2D echocardiogram was performed showing an ejection fraction of about 40-45%. Patient significantly improved with above treatment. Eventually a stress test was performed showing no definite reversible ischemia but fixed defect. Patient recommended to have a cardiac catheterization due to finding of increase lung uptake on the test. Patient however opted to have it done on an outpatient basis and follow-up with cardiology for continued care. The rest of the hospital stays unremarkable. His shortness of breath significantly improved as well as swelling and requested to be discharged. Physical Exam Vital Signs: Temp Pulse Resp BP Pulse Ox 98.5 F 111 H 18 125/93 H 98 07/10/17 12:16 07/10/17 12:16 07/10/17 12:16 07/10/17 12:16 07/10/17 12:16 Intake & Output 07/09/17 07/10/17 07/11/17 06:59 06:59 06:59 Intake Total 1325 1744 Balance 1325 1744 Weight 114.7 kg 110.5 kg General appearance: PRESENT: no acute distress, cooperative Head exam: PRESENT: normocephalic Eye exam: PRESENT: EOMI Mouth exam: PRESENT: moist, neck supple Neck exam: ABSENT: JVD Respiratory exam: PRESENT: clear to auscultation sabine, decreased breath sounds - Lung bases Cardiovascular exam: PRESENT: RRR. ABSENT: gallop GI/Abdominal exam: PRESENT: normal bowel sounds, soft. ABSENT: distended - Obese Extremities exam: ABSENT: pedal edema Neurological exam: PRESENT: alert, awake, oriented to person, oriented to place , oriented to time, oriented to situation Skin exam: PRESENT: dry, warm. ABSENT: cyanosis Results Laboratory Results: 07/09/17 05:18 07/10/17 05:45 07/10/17 05:45 Sodium 135.4 L Potassium 4.4 Chloride 97 L Carbon Dioxide 23 Anion Gap 15 BUN 17 Creatinine 0.88 Est GFR ( Amer) > 60 Est GFR (Non-Af Amer) > 60 Glucose 274 H Calcium 9.8 07/08/17 07/08/17 07/08/17 17:29 17:29 23:24 Creatine Kinase 265 H 273 H CK-MB (CK-2) 3.43 Troponin I 0.104 07/08/17 07/09/17 07/09/17 23:24 05:18 05:18 Creatine Kinase 263 H CK-MB (CK-2) 3.44 3.25 Troponin I 0.110 0.091 Impressions: Chest X-Ray 07/08/17 07:57 IMPRESSION: Chronic lung changes. Pulmonary vascular congestion mild pulmonary edema but normal heart size. Chest/Abdomen CTA 07/08/17 11:23 IMPRESSION: 1. There is no evidence of pulmonary emboli. 2. Moderate right pleural effusion, smaller left pleural effusion. Qualifiers PATEINT BEING DISCHARGED WITH ANY OF THE FOLLOWING DIAGNOSIS?: Heart Failure HF Pt being discharged on ACEI for LVEF less than 40%?: Yes HF Pt being discharged on ARBS for LVEF less than 40%?: No Reason(s) for not prescribing ARBS:: Not indicated - On VALERIE inhibitor HF Pt with Afib discharged with Warfarin?: No Reason(s) for not prescribing Warfarin:: Not indicated - No atrial fibrillation HF Pt discharged on evidence-based Beta María:: Yes Plan Discharge Plan: Follow-up with primary care physician in 1 week. Follow-up with Dr. Allen on . Time Spent: Less than 30 Minutes
[2017-07-10 14:49] VITALS: BP 140/88
[2017-07-10] MEDS ORDERED: METFORMIN HCL 500 MG TABLET PO SCH (16:00)
--- NOTE | 2017-07-10 17:15 | PDOC PROGRESS REPORT ---
Subjective Progress Note for:: 07/10/17 Subjective:: Patient seems to be doing better with significant improvement. Pt is denying any chest arm or neck discomfort. Patient denying any PND, orthopnea. Patient denied any sustained palpitations, dizziness, syncope, near syncope. Patient denying any fever chills. Patient denying any other significant discomfort. Patient is maintaining sinus rhythm. Nuclear stress test was performed. Patient tolerated the stress test well. Discussed results with him. Review of systems: Rest review of systems negative. Medications: Medications have been reviewed. Physical Exam Vital Signs: Temp Pulse Resp BP Pulse Ox 98.5 F 111 H 18 140/88 H 98 07/10/17 14:47 07/10/17 14:47 07/10/17 14:47 07/10/17 14:47 07/10/17 14:47 Intake & Output 07/09/17 07/10/17 07/11/17 06:59 06:59 06:59 Intake Total 1325 1744 710 Balance 1325 1744 710 Weight 114.7 kg 110.5 kg Exam: GENERAL: well-nourished and in no acute distress. Alert and oriented x3 HEAD: Atraumatic, normocephalic. EYES: Pupils equal round and reactive to light, extraocular movements intact, sclera anicteric, conjunctiva are normal. ENT: TMs normal, nares patent, oropharynx clear without exudates. Moist mucous membranes. No oral ulcerations or bleeding gums noted NECK: supple without lymphadenopathy. Trachea is central. No cervical or axillary lymphadenopathy noted. Carotids are 2+, JVD WNL LUNGS: Respiration seems nonlabored, no significant accessory muscle action noted. Breath sounds clear to auscultation bilaterally and equal noted. No wheezes rales or rhonchi noted. No significant dullness noted on percussion. CHEST: Palpation of the chest wall shows no significant chest wall tenderness. No other significant abnormalities noted. 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 ABDOMEN: Soft, no significant tenderness appreciated, normoactive bowel sounds. No guarding, no rebound. No rigidity noted . No masses appreciated. Patient does have some scrotal swelling on the right side. EXTREMITIES: Pedal pulses are 1-2+, no calf tenderness noted. No clubbing or cyanosis. 1+ pedal edema noted NEUROLOGICAL: Focused neurological exam showed no significant neurologic deficit. Normal speech, no focal weakness appreciated. PSYCH: Normal mood, normal affect. Judgment and insight within normal limits. SKIN: No significant ecchymosis, rash, ulcerations or signs of pruritus noted. MUSCULOSKELETAL EXAM: No significant joint swelling noted. Results Laboratory Results: 07/09/17 05:18 07/10/17 05:45 07/10/17 05:45 Sodium 135.4 L Potassium 4.4 Chloride 97 L Carbon Dioxide 23 Anion Gap 15 BUN 17 Creatinine 0.88 Est GFR ( Amer) > 60 Est GFR (Non-Af Amer) > 60 Glucose 274 H Calcium 9.8 07/08/17 07/08/17 07/08/17 17:29 17:29 23:24 Creatine Kinase 265 H 273 H CK-MB (CK-2) 3.43 Troponin I 0.104 07/08/17 07/09/17 07/09/17 23:24 05:18 05:18 Creatine Kinase 263 H CK-MB (CK-2) 3.44 3.25 Troponin I 0.110 0.091 Impressions: Chest X-Ray 07/08/17 07:57 IMPRESSION: Chronic lung changes. Pulmonary vascular congestion mild pulmonary edema but normal heart size. Chest/Abdomen CTA 07/08/17 11:23 IMPRESSION: 1. There is no evidence of pulmonary emboli. 2. Moderate right pleural effusion, smaller left pleural effusion. Assessment & Plan - Diagnosis (1) Dyspnea Qualifiers: Dyspnea type: dyspnea on exertion Qualified Code(s): R06.09 - Other forms of dyspnea Is this a current diagnosis for this admission?: Yes (2) Hypertension Qualifiers: Hypertension type: essential hypertension Qualified Code(s): I10 - Essential (primary) hypertension Is this a current diagnosis for this admission?: Yes (3) Abnormal electrocardiogram Is this a current diagnosis for this admission?: Yes (4) Congestive heart failure Qualifiers: Congestive heart failure type: unspecified congestive heart failure type Congestive heart failure chronicity: acute on chronic Qualified Code(s): I50.9 - Heart failure, unspecified Is this a current diagnosis for this admission?: Yes (5) Coronary artery disease Qualifiers: Coronary Disease-Associated Artery/Lesion type: [place] artery Associated angina: angina presence unspecified Is this a current diagnosis for this admission?: Yes (6) Elevated troponin I level Is this a current diagnosis for this admission?: Yes (7) Chest pain Qualifiers: Chest pain type: unspecified Qualified Code(s): R07.9 - Chest pain, unspecified Is this a current diagnosis for this admission?: Yes - Notes Notes: Nuclear stress results discussed. Total time spent was approximately 45 minutes. Chest pain: Nuclear stress test results discussed. It showed predominantly a fixed defect in the inferior wall suggestive of prior inferior myocardial infarction. Anterior wall and apex seems to be perfusing well. Patient was noted to have increased lung uptake both in rest and stress images therefore felt to be related to either his smoking and or CHF. Patient may have other parenchymal lung disease. Patient was also noted to have depressed LVEF. Did discuss pursuing heart catheterization with the patient. He was given this option however he really wanted to go home and follow very closely with me as an outpatient. Patient was strongly reported to come back to the emergency room if she has any recurrence of chest pain. Patient medications were reviewed. Patient being discharged on aspirin, Plavix, beta-blockers, VALERIE inhibitors and statins. Patient has been recommended to pursue a sleep study as an outpatient. Hypertension goals were discussed. Discussed regular follow-up. CHF: CHF management were discussed with the patient. Patient being discharged on Lasix 80 mg p.o. daily. Electrolytes would need to be monitored. Coronary artery disease: Discussed that there would be low threshold for pursuing heart catheterization. - Time Time with patient: Greater than 35 minutes - CODE STATUS was discussed, patient remains full code. Surrogate decision-maker unchanged. Multiple medical problems were addressed. More than 50% of the time spent coordinating care, discussing management plans with involved caregivers. Management plans discussed with involved personnels. Medical decision making was of moderate to high complexity, patient's has multiple comorbidities. Medications reviewed and adjusted accordingly: Yes
[2017-07-11] MEDS ORDERED: METOPROLOL SUCCINATE 25 MG TAB.SR.24H PO SCH (10:00)
[2017-07-11] MEDS ORDERED: LISINOPRIL 10 MG TABLET PO SCH (10:00)
[2017-07-11] MEDS ORDERED: FUROSEMIDE 80 MG TABLET PO SCH (10:00)
== END 2017-07-10 15:07 | disposition home or self-care (01) | DRG 293 ==
LOC: ER 07:15 → UNDOADMIN 14:15 → EH 14:15 → 3W 15:44 → EH 16:45 → 3W 16:45
DX: I50.9 Heart failure, unspecified (principal); I25.119 Atherosclerotic heart disease of native coronary artery with unspecified angina pectoris; I10 Essential (primary) hypertension; E11.9 Type 2 diabetes mellitus without complications; R94.31 Abnormal electrocardiogram [ECG] [EKG]; R79.89 Other specified abnormal findings of blood chemistry; N32.89 Other specified disorders of bladder; F17.210 Nicotine dependence, cigarettes, uncomplicated; Z79.82 Long term (current) use of aspirin; Z79.84 Long term (current) use of oral hypoglycemic drugs; Z79.01 Long term (current) use of anticoagulants; Z79.899 Other long term (current) drug therapy
CPT/HCPCS: 36415; 71020; 71275; 78452; 80048; 80053; 80061; 82550; 82553; 82962; 83036; 83880; 84443; 84484; 85025; 93005; 93010; 93017; 93306; 94640; 96374; 96375; 99291; A9500; J0280; J1650; J1815; J1940; J2060; J2785; J3490; J7620; Q9969